=== PATIENT | male | born 1960 | race Caucasian/White ===

== ENCOUNTER 2021-05-22 09:27 | Emergency (ER) | payer OTHER ==
[2021-05-22] MEDS ORDERED: Sodium Chloride 0.9% 1000 ML 1,000 ML IV STA (09:36)
[2021-05-22] MEDS ORDERED: Sodium Chloride 0.9% 1000 ML 1,000 ML ONE (09:39)
--- NOTE | 2021-05-22 09:55 | ERPHSYRPT ---
- History of Present Illness Time Seen by Provider: 05/22/21 09:40 Source: patient Exam Limitations: no limitations Patient Subjective Stated Complaint: Abdominal pain Triage Nursing Assessment: Patient ambulated back to ED and transferred self to bed. Patient A+O X3. Patient's skin pink, warm and dry. Patient complains of lower right sided abdominal pain 10/10. Abdomen soft and round with BS X 4. Patient denies N/V and diarrhea. Patient states his urine stream is slower than normal. Physician History: Patient is a 60-year-old male who presents with a complaint of pain in his testicles which started a few days ago. He was seen by his PCP and started on Cipro 2 days ago. The pain is in the lower and her abdomen in the suprapubic area there is been no fever chills or sweats no nausea vomiting or diarrhea his urine output has been slower difficult to start and he does have a history of prostate infection his PCP did a PSA which was reportedly 20 something. He has a schedule with Looking for a colonoscopy in a few days and he is to see a urologist in 1 month. Previous surgery is limited to the gallbladder. Timing/Duration: week(s) (2) Activites at Onset: none Quality: throbbing Onset Location: suprapubic, right testicle Pain Radiation: suprapubic Severity of Pain-Max: moderate Severity of Pain-Current: moderate Modifying Factors: Improves With: urinating (Difficulty starting his stream and slow to empty his bladder.) Associated Symptoms: abdominal pain Prior abdominal problems: other (Cholecystectomy) Sexual intercourse history: non-contributory Allergies/Adverse Reactions: No Known Drug Allergies Allergy (Unverified 05/22/21 09:32) Hx Influenza Vaccination/Date Given: No Hx Pneumococcal Vaccination/Date Given: No Immunizations Up to Date: Yes Travel Risk - International Travel Have you traveled outside of the country in past 3 weeks: No - Coronavirus Screening Are you exhibiting any of the following symptoms?: No Close contact with a COVID-19 positive Pt in past 14-21 Days: No - Vaccine Status Have you recieved a Covid-19 vaccination: Yes 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 Director: Moderna - Vaccination Dates Date of 2cond Vaccination (if applicable): 10/20/2020 - Past Medical History Pertinent Past Medical History: Yes Neurological History: No Pertinent History Cardiac History: Hypertension Respiratory History: No Pertinent History Endocrine Medical History: No Pertinent History Musculoskeletal History: Arthritis, Degenerative Disk Disease - Social History Smoking Status: Never smoker Exposure to second hand smoke: No Patient Lives Alone: No - Review of Systems Constitutional: No Fever, No Chills Eyes: No Symptoms Ears, Nose, & Throat: No Symptoms Respiratory: No Cough, No Dyspnea Cardiac: No Chest Pain, No Edema, No Syncope Abdominal/Gastrointestinal: Abdominal Pain, No Nausea, No Vomiting, No Diarrhea Genitourinary Symptoms: Hesitancy, Urinary Retention, Testicle Pain, No Dysuria Musculoskeletal: No Back Pain, No Neck Pain Skin: No Rash Neurological: No Dizziness, No Focal Weakness, No Sensory Changes Psychological: No Symptoms Endocrine: No Symptoms All Other Systems: Reviewed and Negative - Nursing Vital Signs Nursing Vital Signs: Initial Vital Signs Temperature 98.0 F 05/22/21 09:34 Pulse Rate 82 05/22/21 09:34 Respiratory Rate 18 05/22/21 09:34 Blood Pressure 142/97 05/22/21 09:34 O2 Sat by Pulse Oximetry 96 05/22/21 09:34 Pain Scale Pain Intensity 10 - Physical Exam General Appearance: no apparent distress, alert Eye Exam: PERRL/EOMI Ears, Nose, Throat Exam: pharynx normal, moist mucous membranes Neck Exam: normal inspection, supple Respiratory Exam: normal breath sounds, lungs clear Cardiovascular Exam: regular rate/rhythm, No edema Gastrointestinal/Abdomen Exam: soft, No tenderness Male Genital Exam: normal genitalia, enlarged prostate (Somewhat boggy to palpation on rectal exam) Back Exam: normal inspection, No CVA tenderness Extremity Exam: normal inspection, normal range of motion, No pedal edema Neurologic Exam: alert, oriented x 3, cooperative, sensation nml, No motor deficits Skin Exam: normal color, warm, dry, No rash SpO2 Interpretation: normal SpO2: 96 O2 Delivery: Room Air - Course Nursing assessment & vital signs reviewed: Yes - CT Exams Abdomen/Pelvis CT Interpretation: Other (Most significant finding on the CT scan was of mesenteric adenitis.) Ordered Tests: Active Orders 24 hr Category Date Time Status IV Insertion STAT Care 05/22/21 09:36 Active ABDOMEN AND PELVIS W CONTRAST [CT] Stat Exams 05/22/21 10:36 Completed AMYLASE Stat Lab 05/22/21 09:40 Completed CBC W DIFF Stat Lab 05/22/21 09:40 Completed CMP Stat Lab 05/22/21 09:40 Completed LIPASE Stat Lab 05/22/21 09:40 Completed Lactic Acid Stat Lab 05/22/21 09:57 Completed PROTIME WITH INR Stat Lab 05/22/21 09:40 Completed Prostate Specific Ag,Screen Stat Lab 05/22/21 10:00 Completed UA W/RFX UR CULTURE Stat Lab 05/22/21 09:44 Completed Medication Summary Discontinued Medications Generic Name Dose Route Start Last Admin Trade Name Gene PRN Reason Stop Dose Admin Sodium Chloride 1,000 mls @ 999 mls/hr 05/22/21 09:36 05/22/21 10:49 Sodium Chloride 0.9% 1000 Ml IV 05/22/21 10:36 Infused .Q1H1M STA Infusion Sodium Chloride Confirm 05/22/21 09:39 Sodium Chloride 0.9% 1000 Ml Administered 05/22/21 09:40 Dose 1,000 mls @ ud .ROUTE .STK-MED ONE Lab/Rad Data: Laboratory Result Diagrams 05/22/21 09:40 05/22/21 09:40 Laboratory Results 05/22/21 05/22/21 05/22/21 Range/Units 10:00 09:57 09:44 WBC (4.0-10.5) K/mm3 RBC (4.1-5.6) M/mm3 Hgb (12.5-18.0) gm/dl Hct (42-50) % MCV (78-100) fl MCH (26-32) pg MCHC (32-36) g/dl RDW (11.5-14.0) % Plt Count (150-450) K/mm3 MPV (7.5-11.0) fl Gran % (36.0-66.0) % Eos # (Auto) (0-0.5) Absolute Lymphs (auto) (1.0-4.6) Absolute Monos (auto) (0.0-1.3) Lymphocytes % (24.0-44.0) % Monocytes % (0.0-12.0) % Eosinophils % (0.00-5.0) % Basophils % (0.0-0.4) % Absolute Granulocytes (1.4-6.9) Basophils # (0-0.4) PT (9.4-12.5) SECONDS INR (0.8-3.0) Sodium (137-145) mmol/L Potassium (3.5-5.1) mmol/L Chloride (98-107) mmol/L Carbon Dioxide (22-30) mmol/L Anion Gap (5-15) MEQ/L BUN (9-20) mg/dL Creatinine (0.66-1.25) mg/dL Estimated GFR ML/MIN Glucose (74-106) mg/dL Lactic Acid 1.6 (0.4-2.0) Calcium (8.4-10.2) mg/dL Total Bilirubin (0.2-1.3) mg/dL AST (17-59) U/L ALT (0-50) U/L Alkaline Phosphatase (38-126) U/L Serum Total Protein (6.3-8.2) g/dL Albumin (3.5-5.0) g/dL Amylase (30-110) U/L Lipase (23-300) U/L PSA Screen 6.860 H (0-4) ng/mL Urine Color YELLOW (YELLOW) Urine Appearance CLEAR (CLEAR) Urine pH 7.0 (5-6) Ur Specific [place] 1.019 (1.005-1.025) Urine Protein 30 (Negative) Urine Ketones NEGATIVE (NEGATIVE) Urine Blood NEGATIVE (0-5) Gutierrez/ul Urine Nitrite NEGATIVE (NEGATIVE) Urine Bilirubin NEGATIVE (NEGATIVE) Urine Urobilinogen 4 (0-1) mg/dL Ur Leukocyte Esterase NEGATIVE (NEGATIVE) Urine WBC (Auto) 0-2 (0-5) /HPF Urine RBC (Auto) NONE SEEN (0-2) /HPF U Epithel Cells (Auto) NONE (FEW) /HPF Urine Bacteria (Auto) NONE SEEN (NEGATIVE) /HPF Urine Mucus (Auto) SLIGHT (NEGATIVE) /HPF Urine Culture Reflexed NO (NO) Urine Glucose NEGATIVE (NEGATIVE) mg/dL 05/22/21 05/22/21 05/22/21 Range/Units 09:40 09:40 09:40 WBC 7.3 (4.0-10.5) K/mm3 RBC 5.09 (4.1-5.6) M/mm3 Hgb 14.4 (12.5-18.0) gm/dl Hct 43.4 (42-50) % MCV 85.3 (78-100) fl MCH 28.3 (26-32) pg MCHC 33.2 (32-36) g/dl RDW 14.8 H (11.5-14.0) % Plt Count 228 (150-450) K/mm3 MPV 9.4 (7.5-11.0) fl Gran % 62.9 (36.0-66.0) % Eos # (Auto) 0.18 (0-0.5) Absolute Lymphs (auto) 1.94 (1.0-4.6) Absolute Monos (auto) 0.56 (0.0-1.3) Lymphocytes % 26.6 (24.0-44.0) % Monocytes % 7.7 (0.0-12.0) % Eosinophils % 2.5 (0.00-5.0) % Basophils % 0.3 (0.0-0.4) % Absolute Granulocytes 4.58 (1.4-6.9) Basophils # 0.02 (0-0.4) PT 12.3 (9.4-12.5) SECONDS INR 1.04 (0.8-3.0) Sodium 139 (137-145) mmol/L Potassium 3.5 (3.5-5.1) mmol/L Chloride 105 (98-107) mmol/L Carbon Dioxide 26 (22-30) mmol/L Anion Gap 10.6 (5-15) MEQ/L BUN 15 (9-20) mg/dL Creatinine 1.23 (0.66-1.25) mg/dL Estimated GFR > 60.0 ML/MIN Glucose 134 H (74-106) mg/dL Lactic Acid (0.4-2.0) Calcium 8.6 (8.4-10.2) mg/dL Total Bilirubin 1.20 (0.2-1.3) mg/dL AST 48 (17-59) U/L ALT 38 (0-50) U/L Alkaline Phosphatase 74 (38-126) U/L Serum Total Protein 7.2 (6.3-8.2) g/dL Albumin 4.1 (3.5-5.0) g/dL Amylase 53 (30-110) U/L Lipase 102 (23-300) U/L PSA Screen (0-4) ng/mL Urine Color (YELLOW) Urine Appearance (CLEAR) Urine pH (5-6) Ur Specific [place] (1.005-1.025) Urine Protein (Negative) Urine Ketones (NEGATIVE) Urine Blood (0-5) Gutierrez/ul Urine Nitrite (NEGATIVE) Urine Bilirubin (NEGATIVE) Urine Urobilinogen (0-1) mg/dL Ur Leukocyte Esterase (NEGATIVE) Urine WBC (Auto) (0-5) /HPF Urine RBC (Auto) (0-2) /HPF U Epithel Cells (Auto) (FEW) /HPF Urine Bacteria (Auto) (NEGATIVE) /HPF Urine Mucus (Auto) (NEGATIVE) /HPF Urine Culture Reflexed (NO) Urine Glucose (NEGATIVE) mg/dL - Progress Progress: unchanged Progress Note: 05/22/21 11:01 The PSA that we obtained was 6.860 which is significantly lower than 1 recently done by the PCP according to her significant other. Since the PSA has shown a dramatic decline on the Cipro I wish to continue that but since there has been no symptomatic improvement I intend to add doxycycline 100 mg twice daily for 10 days. - Departure Departure Disposition: Home Clinical Impression: Prostatitis, Mesenteric adenitis Condition: Stable Critical Care Time: No Referrals: DOCTOR,NO FAMILY [NON-STAFF PHY W/O PRIVILEGES] - Follow up/PCP as directed Instructions: Acute Abdomen (Belly Pain), Adult (DC), Mesenteric Lymphadenitis (DC), Prostatitis (DC) Additional Instructions: Follow-up as planned with your PCP Dr. Gonzalez and your urologist. Prescriptions: Doxycycline Hyclate 100 mg [Vibramycin 100 MG] 100 mg PO BID 10 Days #20 tab
[2021-05-22 10:00] LABS: Absolute Neutrophil Ct (ANC) 4.58 (1.4-6.9); Basophil (Absolute #) 0.02 (0-0.4); Eosinophil % 2.5 % (0.00-5.0); Eosinophil (Absolute #) 0.18 (0-0.5); Hematocrit 43.4 % (42-50); Hemoglobin 14.4 gm/dl (12.5-18.0); Lymphocyte (Absolute #) 1.94 (1.0-4.6); Lymphocytes % 26.6 % (24.0-44.0); Mean Cell Volume 85.3 fl (78-100); Mean Corpuscular Hemoglobin 28.3 pg (26-32); Mean Corpuscular Hgb Concent. 33.2 g/dl (32-36); Mean Platelet Volume 9.4 fl (7.5-11.0); Monocyte (Absolute #) 0.56 (0.0-1.3); Monocytes % 7.7 % (0.0-12.0); Neutrophil % 62.9 % (36.0-66.0); Platelet Count 228 K/mm3 (150-450); Red Blood Count 5.09 M/mm3 (4.1-5.6); Red Cell Distribution Width 14.8 % (11.5-14.0); White Blood Count 7.3 K/mm3 (4.0-10.5)
[2021-05-22 10:01] LABS: Appearance CLEAR (CLEAR); Bilirubin NEGATIVE (NEGATIVE); Blood NEGATIVE Ery/ul (0-5); Glucose NEGATIVE (NEGATIVE); Ketones NEGATIVE (NEGATIVE); Leukocyte Esterase NEGATIVE (NEGATIVE); Mucus SLIGHT /HPF (NEGATIVE); Nitrite NEGATIVE (NEGATIVE); Protein,Urine Dip 30 (Negative); Specific Gravity 1.019 (1.005-1.025); Urobilinogen 4 mg/dL (0-1); WBC 0-2 /HPF (0-5)
[2021-05-22 10:08] LABS: INR 1.04 (0.8-3.0); PROTIME 12.3 SECONDS (9.4-12.5)
[2021-05-22 10:13] LABS: ALBUMIN 4.1 g/dL (3.5-5.0); ALKALINE PHOSPHATASE 74 U/L (38-126); AMYLASE 53 U/L (30-110); ANION GAP 10.6 MEQ/L (5-15); BLOOD UREA NITROGEN 15 mg/dL (9-20); CHLORIDE 105 mmol/L (98-107); Calcium 8.6 mg/dL (8.4-10.2); Carbon Dioxide 26 mmol/L (22-30); Creatinine 1 1.23 mg/dL (0.66-1.25); EST GLOMERULAR FILTRATION RATE > 60.0 ML/MIN; Glucose 134 mg/dL (74-106); LIPASE 102 U/L (23-300); Potassium 3.5 mmol/L (3.5-5.1); SGOT/AST 48 U/L (17-59); SGPT/ALT 38 U/L (0-50); SODIUM 139 mmol/L (137-145); Total Protein 7.2 g/dL (6.3-8.2)
[2021-05-22 10:14] LABS: Bacteria NONE SEEN /HPF (NEGATIVE); RBC NONE SEEN /HPF (0-2)
--- NOTE | 2021-05-22 10:48 | XRAY ---
Indication: Lower abdomen pain. Multiple contiguous axial images obtained through the abdomen and pelvis using 80 cc Isovue 370 contrast. Comparison: None Lung bases demonstrates scattered subsegmental atelectasis/scarring. No infiltrate or effusion. Heart not enlarged. Small hiatal hernia with partial intrathoracic stomach. Noncontrasted stomach and bowel loops appear nonobstructed with normal appendix. Scattered colonic diverticulosis without diverticulitis. Previous cholecystectomy. Mid abdomen demonstrates a few subcentimeter mesenteric nodes with stranding favoring adenitis. No free fluid/air. Mild diffuse fatty liver. Spleen is enlarged measuring 15.4 cm. Remaining liver, pancreas, spleen, adrenal glands, kidneys, ureters, bladder, and aorta are unremarkable. No pathologic retroperitoneal lymphadenopathy. Osseous structures intact. No ventral or inguinal hernias. Impression: 1. Subcentimeter mesenteric nodes with stranding favoring mesenteric adenitis. 2. Incidental small hiatal hernia with partial intrathoracic stomach, colonic diverticulosis, fatty liver, and splenomegaly. 2. Remaining CT abdomen/pelvis with contrast exam is negative.
[2021-05-22 11:55] VITALS: BP 122/81; PULSE 79; O2SAT 100
== END 2021-05-22 11:55 | disposition home or self-care (01) ==
LOC: ED 09:27
DX: N41.9 Inflammatory disease of prostate, unspecified (principal); I88.0 Nonspecific mesenteric lymphadenitis; R10.2 Pelvic and perineal pain; N50.812 Left testicular pain; N50.811 Right testicular pain; I10 Essential (primary) hypertension
CPT/HCPCS: 36000; 36415; 74177; 80053; 81001; 82150; 83605; 83690; 84153; 85025; 85610; 99284; G0103

== ENCOUNTER 2021-07-08 08:31 | Day surgery (SDC) | payer OTHER ==
[2021-07-08] MEDS ORDERED: LIDOCAINE HCL 2% 100 MG/5 ML IJ ONE (08:32)
[2021-07-08] MEDS ORDERED: Lactated Ringers 1,000 ML IV ONE (08:32)
[2021-07-08] MEDS ORDERED: Pepcid 20 MG VIAL IV ONE (10:52)
[2021-07-08] MEDS ORDERED: Reglan 10 MG/2 ML ONE (10:52)
[2021-07-08] MEDS ORDERED: DIPRIVAN 200 MG/20 ML IV ONE (11:58)
--- NOTE | 2021-07-08 12:56 | XRAY ---
Indication: Bilateral L4-S1 MBB Intraoperative fluoroscopy provided for 24 seconds. Single digital spot image submitted for interpretation demonstrates posterior needle tips projecting over the expected left and right L4-S1 nerve roots. Correlate with intraoperative findings/report.
--- NOTE | 2021-07-08 13:58 | XRAY ---
24 seconds fluoroscopy time in surgery for bilateral L4-S1 MBB.
== END 2021-07-08 12:18 | disposition home or self-care (01) ==
LOC: SDC-PAIN 08:31
PROVIDERS: ATTEND Psychiatry & Neurology Pain Medicine
DX: M47.816 Spondylosis without myelopathy or radiculopathy, lumbar region (principal); I10 Essential (primary) hypertension; Z79.899 Other long term (current) drug therapy
CPT/HCPCS: 64493; 64494; 72020; 77002; J2704

== ENCOUNTER 2021-08-08 10:57 | Emergency (ER) | payer OTHER ==
[2021-08-08 11:22] VITALS: BP 141/90; PULSE 69; O2SAT 96
--- NOTE | 2021-08-08 11:26 | ERPHSYRPT ---
- History of Present Illness Time Seen by Provider: 08/08/21 11:22 Source: patient, family Exam Limitations: no limitations Patient Subjective Stated Complaint: pt reports stepping off a curb last evening and injuring his right ankle. states he heard a pop. denies other injuries at this time. Triage Nursing Assessment: pt is aox3, pupils perrl, afebrile, resps easy and non labored, skin pink warm dry. mild swelling noted to right ankle, skin in tact. ROM sensation intact. pt ambulator to trt room with no difficulties. Physician History: pt reports stepping off a curb last evening and injuring his right ankle. states he heard a pop. denies other injuries at this time. Method of Injury: twisted Occurred: yesterday Quality: constant Severity of Pain-Max: moderate Severity of Pain-Current: moderate Lower Extremities Pain: ankle: right Modifying Factors: Improves With: cold therapy Associated Symptoms: popping sensation Allergies/Adverse Reactions: No Known Drug Allergies Allergy (Verified 08/08/21 11:10) Home Medications: Gabapentin [Neurontin ] 300 mg PO TID 08/08/21 [History] Hydrocodone/Acetaminophen [Hydrocodone-Acetamin 5-325 mg] 1 tab PO Q6HPRN PRN MDD 4 08/08/21 [History] Isosorbide Dinitrate 30 mg PO BID 08/08/21 [History] Lisinopril/Hydrochlorothiazide [Lisinopril-Hctz 10-12.5 mg Tab] 1 each PO DAILY 08/08/21 [History] Omeprazole 20 mg PO DAILY 08/08/21 [History] Sertraline HCl 50 mg [Zoloft 50 mg Tablet] 100 mg PO DAILY 08/08/21 [History] hydrOXYzine pamoate [Hydroxyzine Pamoate] 50 mg PO DAILY 08/08/21 [History] Hx Tetanus, Diphtheria Vaccination/Date Given: Yes Hx Influenza Vaccination/Date Given: No Hx Pneumococcal Vaccination/Date Given: No Immunizations Up to Date: Yes Travel Risk - International Travel Have you traveled outside of the country in past 3 weeks: No - Coronavirus Screening Are you exhibiting any of the following symptoms?: No Close contact with a COVID-19 positive Pt in past 14-21 Days: No - Vaccine Status Have you recieved a Covid-19 vaccination: Yes 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 Bench: Moderna - Vaccination Dates Date of 2cond Vaccination (if applicable): 11/08/20 - Review of Systems Constitutional: No Fever, No Chills Eyes: No Symptoms Ears, Nose, & Throat: No Symptoms Respiratory: No Cough, No Dyspnea Cardiac: No Chest Pain, No Edema, No Syncope Abdominal/Gastrointestinal: No Abdominal Pain, No Nausea, No Vomiting, No Diarrhea Genitourinary Symptoms: No Dysuria Musculoskeletal: Joint Swelling (right ankle), No Back Pain, No Neck Pain Skin: No Rash Neurological: No Dizziness, No Focal Weakness, No Sensory Changes Psychological: No Symptoms Endocrine: No Symptoms All Other Systems: Reviewed and Negative - Past Medical History Pertinent Past Medical History: Yes Neurological History: No Pertinent History Cardiac History: Hypertension Respiratory History: No Pertinent History Endocrine Medical History: No Pertinent History Musculoskeletal History: Degenerative Disk Disease, Osteoarthritis - Past Surgical History Past Surgical History: Yes Gastrointestinal: Cholecystectomy - Social History Smoking Status: Never smoker Exposure to second hand smoke: No Drug Use: none Patient Lives Alone: No - Nursing Vital Signs Nursing Vital Signs: Initial Vital Signs Temperature 97 F 08/08/21 11:01 Pulse Rate 69 08/08/21 11:01 Respiratory Rate 18 08/08/21 11:01 Blood Pressure 141/90 08/08/21 11:01 O2 Sat by Pulse Oximetry 96 08/08/21 11:01 Pain Scale Pain Intensity 8 - Physical Exam General Appearance: alert Eyes, Ears, Nose, Throat Exam: moist mucous membranes Neck Exam: non-tender, supple Cardiovascular/Respiratory Exam: chest non-tender, normal breath sounds, regular rate/rhythm, no respiratory distress Gastrointestinal/Abdominal Exam: non-tender, guarding Back Exam: normal inspection, No vertebral tenderness Hips Exam: bilateral: non-tender Legs Exam: bilateral leg: non-tender Knees Exam: bilateral knee: non-tender Ankle Exam: right ankle: limited range of motion, soft tissue tenderness Foot Exam: bilateral foot: non-tender Neuro/Tendon Exam: normal sensation, normal motor functions Mental Status Exam: alert, oriented x 3, cooperative Skin Exam: normal color, warm, dry SpO2: 96 - Course Nursing assessment & vital signs reviewed: Yes - Radiology Exams Ankle X-ray Interpretation: Reviewed by me, Discussed w/ radiologist, Negative Ordered Tests: Active Orders 24 hr Category Date Time Status ANKLE (3 VIEWS) Stat Exams 08/08/21 11:18 Taken - Progress Progress: improved, pain not gone completely Counseled pt/family regarding: diagnosis, need for follow-up, rad results - Departure Departure Disposition: Home Clinical Impression: Right ankle sprain Qualifiers: Encounter type: initial encounter Involved ligament of ankle: tibiofibular ligament Qualified Code(s): S93.431A - Sprain of tibiofibular ligament of right ankle, initial encounter Condition: Stable Critical Care Time: No Referrals: YARITZA BERGERON CHORAL TEACHER [Primary Care Provider] - [facility]th[facility] M-F [id number] Instructions: Ankle Sprain (DC) Additional Instructions: SPRAINS/STRAINS/CONTUSIONS 1. Rest the affected area as much as possible for the next few days. 2. Apply ice to the affected area for 20-30 minutes at a time, several times a day. 3. If you receive an elastic wrap, wear it only while awake for comfort and support. Re-wrap the elastic wrap if it feels too tight or too loose. 4. If swelling is present, elevate the affected part above the level of the heart for at least 2 to 3 days. 5. Use splints, slings, or crutches as instructed. 6. Watch for severe swelling, coldness, numbness, and discoloration of the fingers and toes. See your family physician or return to the emergency department if any of these are noted. Discharge/Care Plan JAMES HAYES was seen on 08/08/21 in the Emergency Room. The patient was counseled regarding Diagnosis,Lab results, Imaging studies, need for follow up and when to return to the Emergency Room. Prescriptions given: Discharge Note I have spoken with the patient and/or caregivers. I have explained the patient's condition, diagnosis and treatment plan based on the information available to me at this time. I have answered the patient's and/or caregiver's questions and addressed any concerns. The patient and/or caregivers have as good understanding of the patient's diagnosis, condition and treatment plan as can be expected at this point. The vital signs have been stable. The patient's condition is stable and appropriate for discharge from the emergency department. The patient will pursue further outpatient evaluation with the primary care physician or other designated or consulting physician as outlined in the discharge instructions. The patient and/or caregivers are agreeable to this plan of care and follow-up instructions have been explained in detail. The patient and/or caregivers have received these instruction. The patient/and or caregivers are aware that any significant change in condition or worsening of symptoms should prompt an immediate return to this or the closest emergency department or call 911. JAMES HAYES was seen on 08/08/21 n the Emergency Room. At that time you were treated for an emergent condition, during your visit Laboratory, Radiology and/or other procedures may have been ordered. It is very important that you follow-up with your Primary Care Physician YARITZA BERGERON NP within the next 24-48 hours to review your Emergency Room visit and the final results of testing that was ordered. Some test results such as Urine Cultures, Blood Cultures, and other cultures if ordered will not be finalized for 24-48 hours. If you do not have a Primary Care Provider please call the medical records department at [phone] ext [phone] to obtain a copy of your results or you may sign into our patient portal to obtain these results by visiting us @ [email or web address] and completing the following steps: 1. Click on the Patient Portal link 2. Click the Patient Self Enrollment Link to complete the enrollment form and entering your 3. Once the enrollment form is completed you will receive an email with a temporary ID and password at the email address you provided. 4. Next choose a user name and password. Your user name must be at least 4 characters long and your password must be at least 4 characters long. 5. Choose a security question from the list and provide your answer to the question. If you already have signed into the Health Portal you may access your Health Care Information 11/10 by the following steps: 1. Login to our website @ [email or web address] 2. Enter your original user name and password. FAQS The [facility] Health Portal is an online tool that contains your Lab Results, Radiology Reports, Visit History, Discharge Instructions and Health Summary Lab and Radiology Results will not be available for 72 hours on the portal. The Portal is a secure site, passwords are encryted and URLs are re-written so they cannot be copied and pasted. You and authorized family members are the only ones who can access your Portal. Also there is a timeout feature that protects your information if you leave the Portal page open. If you have technical difficulty please use the Contact Us link on the page this will allow you to submit any questions you have regarding the Portal or you may contact the Medical Record Department at [phone] ext [phone].
--- NOTE | 2021-08-08 19:27 | XRAY ---
Indication: Pain following fall. Comparison: None 3 view right ankle demonstrates lateral soft tissue swelling and tiny calcaneal bone island. No other bony, articular, or soft tissue abnormalities. Comment: Preliminary interpretation made by [facility]. No critical discrepancy.
== END 2021-08-08 12:15 | disposition home or self-care (01) ==
LOC: ED 10:57
DX: S93.431A Sprain of tibiofibular ligament of right ankle, initial encounter (principal); X50.0XXA Overexertion from strenuous movement or load, initial encounter; Y93.01 Activity, walking, marching and hiking; M25.571 Pain in right ankle and joints of right foot; I10 Essential (primary) hypertension; Z79.891 Long term (current) use of opiate analgesic; Z79.899 Other long term (current) drug therapy
CPT/HCPCS: 73610; 99283

== ENCOUNTER 2021-09-02 07:31 | Day surgery (SDC) | payer OTHER ==
[2021-09-02] MEDS ORDERED: Sodium Chloride 0.9(Preservative Free) 10 ML IJ ONE (07:32)
[2021-09-02] MEDS ORDERED: XYLOCAINE-MPF 1% 5ML SDV IJ ONE (07:32)
[2021-09-02] MEDS ORDERED: Depo-Medrol 40 MG/ML IM ONE (07:32)
[2021-09-02] MEDS ORDERED: Lactated Ringers 1,000 ML IV ONE (07:32)
[2021-09-02] MEDS ORDERED: Reglan 10 MG/2 ML ONE (08:55)
[2021-09-02] MEDS ORDERED: Pepcid 20 MG VIAL IV ONE (08:55)
--- NOTE | 2021-09-02 11:43 | XRAY ---
Indication: Lumbar MATA. Intraoperative fluoroscopy provided for 25 seconds. 2 digital spot images submitted for interpretation demonstrate midline posterior needle tip projecting posterior to the L4-L5 interspace. Small amount of contrast injected for needle tip placement. Correlate with intraoperative findings/report.
--- NOTE | 2021-09-02 12:29 | XRAY ---
25 seconds of fluoroscopy was used in surgery for a lumbar MATA.
== END 2021-09-02 10:13 | disposition home or self-care (01) ==
LOC: SDC-PAIN 07:31
PROVIDERS: ATTEND Psychiatry & Neurology Pain Medicine
DX: M54.16 Radiculopathy, lumbar region (principal); Z79.899 Other long term (current) drug therapy
CPT/HCPCS: 62323; 72100; 77003; J1030; Q9966

== ENCOUNTER 2021-09-16 10:52 | Day surgery (SDC) | payer OTHER ==
[2021-09-16] MEDS ORDERED: DIPRIVAN 200 MG/20 ML IV ONE (10:53)
[2021-09-16] MEDS ORDERED: Lactated Ringers 1,000 ML IV ONE (10:53)
[2021-09-16] MEDS ORDERED: Marcaine Mpf 0.5% Vial 30 Ml IJ ONE (10:53)
[2021-09-16] MEDS ORDERED: Depo-Medrol 40 MG/ML IM ONE (10:53)
[2021-09-16] MEDS ORDERED: Reglan 10 MG/2 ML ONE (11:49)
[2021-09-16] MEDS ORDERED: Pepcid 20 MG VIAL IV ONE (11:49)
--- NOTE | 2021-09-17 18:30 | XRAY ---
20 seconds of fluoroscopy was used in surgery for bilateral SI joints injections.
--- NOTE | 2021-09-18 15:34 | XRAY ---
Indication: Bilateral SI joint injection. Intraoperative fluoroscopy provided for 20 seconds. 4 digital spot images submitted for interpretation demonstrates posterior needle tips projecting over the inferior sacroiliac joints is evident. Correlate with intraoperative findings/report.
== END 2021-09-16 13:01 | disposition home or self-care (01) ==
LOC: SDC-PAIN 10:52
PROVIDERS: ATTEND Psychiatry & Neurology Pain Medicine
DX: M46.1 Sacroiliitis, not elsewhere classified (principal); Z79.899 Other long term (current) drug therapy
CPT/HCPCS: 27096; 72202; 77002; G0260; J1030; J2704

== ENCOUNTER 2021-10-28 13:17 | Day surgery (SDC) | payer OTHER ==
[2021-10-28] MEDS ORDERED: Marcaine Mpf 0.5% Vial 30 Ml IJ ONE (13:18)
[2021-10-28] MEDS ORDERED: DIPRIVAN 200 MG/20 ML IV ONE (15:21)
[2021-10-28] MEDS ORDERED: Lactated Ringers 1,000 ML IV ONE (15:44)
--- NOTE | 2021-10-28 16:25 | XRAY ---
Indication: Bilateral L4-S1 MBB. Intraoperative fluoroscopy provided for 28 seconds. Single digital spot image submitted for interpretation demonstrates posterior needle tips projecting over the expected left and right L4-S1 nerve roots. Correlate with intraoperative findings/report.
--- NOTE | 2021-10-28 16:44 | XRAY ---
28 seconds of fluoroscopy was used in surgery for a bilateral L4-S1 MBB.
== END 2021-10-28 15:50 | disposition home or self-care (01) ==
LOC: SDC-PAIN 13:17
PROVIDERS: ATTEND Psychiatry & Neurology Pain Medicine
DX: M47.816 Spondylosis without myelopathy or radiculopathy, lumbar region (principal); Z79.899 Other long term (current) drug therapy
CPT/HCPCS: 64493; 64494; 72020; 77002; J2704

== ENCOUNTER 2021-11-04 14:45 | Emergency (ER) | payer OTHER ==
[2021-11-04] MEDS ORDERED: Sodium Chloride 0.9% 1000 ML 1,000 ML ONE (15:25)
[2021-11-04] MEDS: Sodium Chloride 0.9% 1000 ML 1,000 ML IV STA (15:26)
[2021-11-04 15:27] LABS: Absolute Neutrophil Ct (ANC) 4.79 x10^3/uL (1.4-6.9); Basophil (Absolute #) 0.04 x10^3/uL (0-0.4); Eosinophil % 2.7 % (0.00-5.0); Eosinophil (Absolute #) 0.18 x10^3/uL (0-0.5); Hematocrit 43.3 % (42-50); Hemoglobin 14.3 g/dL (12.5-18.0); Lymphocyte (Absolute #) 1.27 x10^3/uL (1.0-4.6); Lymphocytes % 18.8 % (24.0-44.0); Mean Cell Volume 83.4 fL (78-100); Mean Corpuscular Hemoglobin 27.6 pg (26-32); Mean Platelet Volume 9.6 fL (7.5-11.0); Monocyte (Absolute #) 0.43 x10^3/uL (0.0-1.3); Monocytes % 6.4 % (0.0-12.0); Neutrophil % 71.1 % (36.0-66.0); Platelet Count 204 x10^3/uL (150-450); Red Blood Count 5.19 x10^6/uL (4.1-5.6); Red Cell Distribution Width 15.5 % (11.5-14.0); White Blood Count 6.7 x10^3/uL (4.0-10.5)
[2021-11-04 15:41] LABS: D-DIMER QUANTITATIVE < 0.19 mg/L (0.0-0.50); INR 0.99 (0.8-3.0); PROTIME 10.5 SECONDS (9.4-12.5)
[2021-11-04 15:54] LABS: ALBUMIN 4.3 g/dL (3.5-5.0); ALKALINE PHOSPHATASE 63 U/L (38-126); AMYLASE 67 U/L (30-110); ANION GAP 12.7 MEQ/L (5-15); BLOOD UREA NITROGEN 14 mg/dL (9-20); CHLORIDE 106 mmol/L (98-107); Calcium 9.3 mg/dL (8.4-10.2); Carbon Dioxide 24 mmol/L (22-30); Creatinine 1 1.28 mg/dL (0.66-1.25); EST GLOMERULAR FILTRATION RATE > 60.0 ML/MIN; Glucose 139 mg/dL (74-106); LIPASE 72 U/L (23-300); NT PRO BNP 23.1 pg/mL (0-900); Potassium 3.8 mmol/L (3.5-5.1); SGOT/AST 31 U/L (17-59); SGPT/ALT 22 U/L (0-50); SODIUM 138 mmol/L (137-145); Total Protein 7.5 g/dL (6.3-8.2)
[2021-11-04] MEDS ORDERED: Zofran 4 MG/2 ML VIAL ONE (16:30)
[2021-11-04] MEDS: Zofran 4 MG/2 ML VIAL IV ONE (16:31)
[2021-11-04 16:32] LABS: Erythrocyte Sedimentation Rate 11 mm/hr (0-15)
--- NOTE | 2021-11-04 16:32 | XRAY ---
Indication: Chest discomfort. Bilateral arm tingling. Comparison: None Portable chest demonstrates lingula subsegmental atelectasis/scarring. Remaining heart and lungs unremarkable. Bony thorax intact.
--- NOTE | 2021-11-04 16:32 | XRAY ---
Indication: Bilateral arm pain and paresthesia. Multiple contiguous axial images obtained through the cervical spine. Sagittal and coronal reformatted images obtained. Comparison: None Axial images negative for acute fracture, suspicious bony lesions, or spinal canal stenosis. Facets are symmetric. Sagittal and coronal reformatted images demonstrates lordotic straightening. Vertebral body heights/disc spaces maintained. No acute compression fracture, subluxation, or jumped facet. Normal appearing craniocervical junction. Visualized noncontrasted soft tissues including lung apices are unremarkable. Patient is edentulous. Impression: Negative CT cervical spine.
[2021-11-04 17:34] LABS: WBC 0-2 /HPF (0-5)
[2021-11-04] MEDS ORDERED: Hydromorphone 1 mg/ml Injection ONE (17:44)
[2021-11-04] MEDS: Hydromorphone 1 mg/ml Injection IV ONE (17:45)
[2021-11-04 17:47] LABS: Appearance CLOUDY (CLEAR); Bilirubin NEGATIVE (NEGATIVE); Glucose NEGATIVE (NEGATIVE); Ketones NEGATIVE (NEGATIVE); Nitrite NEGATIVE (NEGATIVE); Protein,Urine Dip NEGATIVE (Negative); RBC NEGATIVE Ery/ul (0-5); Urobilinogen 0.2 mg/dL (0-1)
[2021-11-04 17:48] LABS: Dipstick done @ ? MAIN LAB
[2021-11-04 17:49] LABS: Urine Cultured Indicated? NO
[2021-11-04 18:15] VITALS: O2SAT 96
--- NOTE | 2021-11-04 18:37 | ERPHSYRPT ---
- History of Present Illness Time Seen by Provider: 11/04/21 14:50 Historian: patient Exam Limitations: no limitations Patient Subjective Stated Complaint: Pt states "I have tingling in both arms and I could not sleep last night very well." Triage Nursing Assessment: PT presented alert and oriented X 3, skin pwd Pt ambulates with an upright steady gait, able to speak in clear full setnences pt in no apaprent respiratory distress. Physician History: Patient is a 61-year-old white male presents with a several complaints 1 is bilateral tingling in his hands and pain across his chest which she rates 11 of 10. He seems quite dramatic and somewhat anxious. These chest pain started last p.m. 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 He is also seen at the pain center for lower back pain and degenerative disc disease. Timing/Duration: yesterday Activities at Onset: sleep Quality: tightness Location: substernal Chest Pain Radiation: no radiation Severity of Pain-Max: moderate Severity of Pain-Current: mild Modifying Factors: Improves With: nitroglycerin (Nitroglycerin was of no help at all) Associated Symptoms: nausea Prior Chest Pain/Cardiac Workup: stress test Nitro Today/Relief: no nitro taken today Aspirin Treatment Today: no aspirin today Allergies/Adverse Reactions: No Known Drug Allergies Allergy (Verified 08/08/21 11:10) Home Medications: Gabapentin [Neurontin ] 300 mg PO TID 08/08/21 [History] Hydrocodone/Acetaminophen [Hydrocodone-Acetamin 5-325 mg] 1 tab PO Q6HPRN PRN MDD 4 08/08/21 [History] Isosorbide Dinitrate 30 mg PO BID 08/08/21 [History] Lisinopril/Hydrochlorothiazide [Lisinopril-Hctz 10-12.5 mg Tab] 1 each PO DAILY 08/08/21 [History] Omeprazole 20 mg PO DAILY 08/08/21 [History] Sertraline HCl 50 mg [Zoloft 50 mg Tablet] 100 mg PO DAILY 08/08/21 [History] hydrOXYzine pamoate [Hydroxyzine Pamoate] 50 mg PO DAILY 08/08/21 [History] Hx Tetanus, Diphtheria Vaccination/Date Given: Yes Hx Influenza Vaccination/Date Given: No Hx Pneumococcal Vaccination/Date Given: No Immunizations Up to Date: Yes Travel Risk - International Travel Have you traveled outside of the country in past 3 weeks: No - Coronavirus Screening Are you exhibiting any of the following symptoms?: No Close contact with a COVID-19 positive Pt in past 14-21 Days: No - Vaccine Status Have you recieved a Covid-19 vaccination: Yes 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 - Vaccination Dates Date of 2cond Vaccination (if applicable): 11/08/20 - Review of Systems Constitutional: No Fever, No Chills Eyes: No Symptoms Ears, Nose, & Throat: No Symptoms Respiratory: No Cough, No Dyspnea Cardiac: Chest Pain, No Edema, No Syncope Abdominal/Gastrointestinal: No Abdominal Pain, No Nausea, No Vomiting, No Diarrhea Genitourinary Symptoms: No Dysuria Musculoskeletal: No Back Pain, No Neck Pain Skin: No Rash Neurological: Parasthesia, No Dizziness, No Focal Weakness, No Sensory Changes Psychological: No Symptoms Endocrine: No Symptoms Hematologic/Lymphatic: No Symptoms Immunological/Allergic: No Symptoms All Other Systems: Reviewed and Negative - Past Medical History Pertinent Past Medical History: Yes Neurological History: No Pertinent History Cardiac History: Hypertension Respiratory History: No Pertinent History Endocrine Medical History: No Pertinent History Musculoskeletal History: Degenerative Disk Disease, Osteoarthritis - Past Surgical History Past Surgical History: Yes Gastrointestinal: Cholecystectomy - Social History Smoking Status: Never smoker Exposure to second hand smoke: No Drug Use: none Patient Lives Alone: No - Nursing Vital Signs Nursing Vital Signs: Initial Vital Signs Temperature 96.8 F 11/04/21 14:49 Pulse Rate 61 11/04/21 14:49 Respiratory Rate 20 11/04/21 14:49 Blood Pressure 123/88 11/04/21 14:49 O2 Sat by Pulse Oximetry 98 11/04/21 14:49 Pain Scale Pain Intensity 0 - Physical Exam General Appearance: mild distress, alert Eye Exam: PERRL/EOMI, eyes nml inspection Ears, Nose, Throat Exam: normal ENT inspection, moist mucous membranes Neck Exam: normal inspection, non-tender, supple, full range of motion Respiratory Exam: normal breath sounds, lungs clear, No respiratory distress Cardiovascular Exam: regular rate/rhythm, normal heart sounds Gastrointestinal/Abdomen Exam: soft, No tenderness, No mass Back Exam: normal inspection, No CVA tenderness, No vertebral tenderness Extremity Exam: normal inspection, normal range of motion Neurologic Exam: alert, oriented x 3, cooperative, normal mood/affect, sensation nml, No motor deficits Skin Exam: normal color, warm, dry SpO2: 96 - Course Nursing assessment & vital signs reviewed: Yes EKG Interpreted by Me: RATE ([id number]), Sinus Rhythm, NORMAL AXIS, Left [place] Deviation, NORMAL INTERVALS, Non-specific ST Changes Ordered Tests: Active Orders 24 hr Category Date Time Status EKG-ER Only STAT Care 11/04/21 15:07 Active IV Insertion STAT Care 11/04/21 15:07 Active CERVICAL SPINE WO CONTRAST [CT] Routine Exams 11/04/21 15:31 Completed CHEST 1 VIEW (PORTABLE) Routine Exams 11/04/21 15:32 Completed AMYLASE Stat Lab 11/04/21 15:25 Completed CBC W DIFF Stat Lab 11/04/21 15:25 Completed CMP Stat Lab 11/04/21 15:25 Completed D-DIMER QUANTITATIVE Stat Lab 11/04/21 15:25 Completed Erythrocyte Sedimentation Rate Stat Lab 11/04/21 15:25 Completed LIPASE Stat Lab 11/04/21 15:25 Completed Lactic Acid Stat Lab 11/04/21 15:25 Completed NT PRO BNP Stat Lab 11/04/21 15:25 Completed PROTIME WITH INR Stat Lab 11/04/21 15:25 Completed TROPONIN Q4H Lab 11/04/21 15:25 Completed TROPONIN Q4H Lab 11/04/21 17:55 Completed TROPONIN Q4H Lab 11/04/21 23:15 Ordered UA W/RFX CULTURE Stat Lab 11/04/21 17:24 Completed Medication Summary Discontinued Medications Generic Name Dose Route Start Last Admin Trade Name Freq PRN Reason Stop Dose Admin Hydromorphone HCl 1 mg 11/04/21 17:41 11/04/21 17:45 Hydromorphone 1 Mg/1ml Inj 1 Mg/Ml Syringe IV 11/04/21 17:42 1 mg STAT ONE Administration Hydromorphone HCl Confirm 11/04/21 17:44 Hydromorphone 1 Mg/1ml Inj 1 Mg/Ml Syringe Administered 11/04/21 17:45 Dose 1 mg .ROUTE .STK-MED ONE Sodium Chloride 1,000 mls @ 999 mls/hr 11/04/21 15:07 11/04/21 16:37 Sodium Chloride 0.9% 1000 Ml IV 11/04/21 16:07 Infused .Q1H1M STA Infusion Sodium Chloride Confirm 11/04/21 15:25 Sodium Chloride 0.9% 1000 Ml Administered 11/04/21 15:26 Dose 1,000 mls @ ud .ROUTE .STK-MED ONE Ondansetron HCl 4 mg 11/04/21 16:26 11/04/21 16:31 Ondansetron Hcl 4 Mg/2 Ml Vial IV 11/04/21 16:27 4 mg STAT ONE Administration Ondansetron HCl Confirm 11/04/21 16:30 Ondansetron Hcl 4 Mg/2 Ml Vial Administered 11/04/21 16:31 Dose 4 mg .ROUTE .STK-MED ONE Lab/Rad Data: Laboratory Result Diagrams 11/04/21 15:25 11/04/21 15:25 Laboratory Results 11/04/21 11/04/21 11/04/21 Range/Units 17:55 17:24 15:25 WBC (4.0-10.5) x10^3/uL RBC (4.1-5.6) x10^6/uL Hgb (12.5-18.0) g/dL Hct (42-50) % MCV (78-100) fL MCH (26-32) pg MCHC (32-36) g/dL RDW (11.5-14.0) % Plt Count (150-450) x10^3/uL MPV (7.5-11.0) fL Gran % (36.0-66.0) % Immature Gran % (Auto) (0.00-0.4) % Nucleat RBC Rel Count (0.00-0.1) % Eos # (Auto) (0-0.5) x10^3/uL Immature Gran # (Auto) (0.00-0.03) x10^3u/L Absolute Lymphs (auto) (1.0-4.6) x10^3/uL Absolute Monos (auto) (0.0-1.3) x10^3/uL Absolute Nucleated RBC (0.00-0.01) x10^3u/L Lymphocytes % (24.0-44.0) % Monocytes % (0.0-12.0) % Eosinophils % (0.00-5.0) % Basophils % (0.0-0.4) % Absolute Granulocytes (1.4-6.9) x10^3/uL Basophils # (0-0.4) x10^3/uL ESR (0-15) mm/hr PT (9.4-12.5) SECONDS INR (0.8-3.0) D-Dimer (0.0-0.50) mg/L Sodium (137-145) mmol/L Potassium (3.5-5.1) mmol/L Chloride (98-107) mmol/L Carbon Dioxide (22-30) mmol/L Anion Gap (5-15) MEQ/L BUN (9-20) mg/dL Creatinine (0.66-1.25) mg/dL Estimated GFR ML/MIN Glucose (74-106) mg/dL Lactic Acid (0.4-2.0) Calcium (8.4-10.2) mg/dL Total Bilirubin (0.2-1.3) mg/dL AST (17-59) U/L ALT (0-50) U/L Alkaline Phosphatase (38-126) U/L Troponin I < 0.012 < 0.012 (0.000-0.034) ng/mL NT-Pro-B Natriuret Pep (0-900) pg/mL Serum Total Protein (6.3-8.2) g/dL Albumin (3.5-5.0) g/dL Amylase (30-110) U/L Lipase (23-300) U/L Urinalys Dipstick Clnc MAIN LAB Urine Color YELLOW (YELLOW) Urine Appearance CLOUDY (CLEAR) Urine pH 7.0 (5-6) Ur Specific [place] 1.020 (1.005-1.025) POC Urine Protein Conf NEGATIVE (Negative) Urine Ketones NEGATIVE (NEGATIVE) Urine Nitrite NEGATIVE (NEGATIVE) Urine Bilirubin NEGATIVE (NEGATIVE) Urine Urobilinogen 0.2 (0-1) mg/dL Urine Leukocytes NEGATIVE (NEGATIVE) Urine WBC (Auto) 0-2 (0-5) /HPF Urine RBC (Auto) NONE (0-2) /HPF U Epithel Cells (Auto) NONE (FEW) /HPF Urine Bacteria (Auto) NONE (NEGATIVE) /HPF Urine RBC NEGATIVE (0-5) Gutierrez/ul Ur Culture Indicated? NO Urine Glucose NEGATIVE (NEGATIVE) mg/dL 11/04/21 11/04/21 11/04/21 Range/Units 15:25 15:25 15:25 WBC (4.0-10.5) x10^3/uL RBC (4.1-5.6) x10^6/uL Hgb (12.5-18.0) g/dL Hct (42-50) % MCV (78-100) fL MCH (26-32) pg MCHC (32-36) g/dL RDW (11.5-14.0) % Plt Count (150-450) x10^3/uL MPV (7.5-11.0) fL Gran % (36.0-66.0) % Immature Gran % (Auto) (0.00-0.4) % Nucleat RBC Rel Count (0.00-0.1) % Eos # (Auto) (0-0.5) x10^3/uL Immature Gran # (Auto) (0.00-0.03) x10^3u/L Absolute Lymphs (auto) (1.0-4.6) x10^3/uL Absolute Monos (auto) (0.0-1.3) x10^3/uL Absolute Nucleated RBC (0.00-0.01) x10^3u/L Lymphocytes % (24.0-44.0) % Monocytes % (0.0-12.0) % Eosinophils % (0.00-5.0) % Basophils % (0.0-0.4) % Absolute Granulocytes (1.4-6.9) x10^3/uL Basophils # (0-0.4) x10^3/uL ESR (0-15) mm/hr PT 10.5 (9.4-12.5) SECONDS INR 0.99 (0.8-3.0) D-Dimer < 0.19 (0.0-0.50) mg/L Sodium 138 (137-145) mmol/L Potassium 3.8 (3.5-5.1) mmol/L Chloride 106 (98-107) mmol/L Carbon Dioxide 24 (22-30) mmol/L Anion Gap 12.7 (5-15) MEQ/L BUN 14 (9-20) mg/dL Creatinine 1.28 H (0.66-1.25) mg/dL Estimated GFR > 60.0 ML/MIN Glucose 139 H (74-106) mg/dL Lactic Acid 1.3 (0.4-2.0) Calcium 9.3 (8.4-10.2) mg/dL Total Bilirubin 1.30 (0.2-1.3) mg/dL AST 31 (17-59) U/L ALT 22 (0-50) U/L Alkaline Phosphatase 63 (38-126) U/L Troponin I (0.000-0.034) ng/mL NT-Pro-B Natriuret Pep 23.1 (0-900) pg/mL Serum Total Protein 7.5 (6.3-8.2) g/dL Albumin 4.3 (3.5-5.0) g/dL Amylase 67 (30-110) U/L Lipase 72 (23-300) U/L Urinalys Dipstick Clnc Urine Color (YELLOW) Urine Appearance (CLEAR) Urine pH (5-6) Ur Specific [place] (1.005-1.025) POC Urine Protein Conf (Negative) Urine Ketones (NEGATIVE) Urine Nitrite (NEGATIVE) Urine Bilirubin (NEGATIVE) Urine Urobilinogen (0-1) mg/dL Urine Leukocytes (NEGATIVE) Urine WBC (Auto) (0-5) /HPF Urine RBC (Auto) (0-2) /HPF U Epithel Cells (Auto) (FEW) /HPF Urine Bacteria (Auto) (NEGATIVE) /HPF Urine RBC (0-5) Gutierrez/ul Ur Culture Indicated? Urine Glucose (NEGATIVE) mg/dL 11/04/ Range/Units 15:25 WBC 6.7 (4.0-10.5) x10^3/uL RBC 5.19 (4.1-5.6) x10^6/uL Hgb 14.3 (12.5-18.0) g/dL Hct 43.3 (42-50) % MCV 83.4 (78-100) fL MCH 27.6 (26-32) pg MCHC 33.0 (32-36) g/dL RDW 15.5 H (11.5-14.0) % Plt Count 204 (150-450) x10^3/uL MPV 9.6 (7.5-11.0) fL Gran % 71.1 H (36.0-66.0) % Immature Gran % (Auto) 0.4 (0.00-0.4) % Nucleat RBC Rel Count 0.0 (0.00-0.1) % Eos # (Auto) 0.18 (0-0.5) x10^3/uL Immature Gran # (Auto) 0.03 (0.00-0.03) x10^3u/L Absolute Lymphs (auto) 1.27 (1.0-4.6) x10^3/uL Absolute Monos (auto) 0.43 (0.0-1.3) x10^3/uL Absolute Nucleated RBC 0.00 (0.00-0.01) x10^3u/L Lymphocytes % 18.8 L (24.0-44.0) % Monocytes % 6.4 (0.0-12.0) % Eosinophils % 2.7 (0.00-5.0) % Basophils % 0.6 (0.0-0.4) % Absolute Granulocytes 4.79 (1.4-6.9) x10^3/uL Basophils # 0.04 (0-0.4) x10^3/uL ESR 11 (0-15) mm/hr PT (9.4-12.5) SECONDS INR (0.8-3.0) D-Dimer (0.0-0.50) mg/L Sodium (137-145) mmol/L Potassium (3.5-5.1) mmol/L Chloride (98-107) mmol/L Carbon Dioxide (22-30) mmol/L Anion Gap (5-15) MEQ/L BUN (9-20) mg/dL Creatinine (0.66-1.25) mg/dL Estimated GFR ML/MIN Glucose (74-106) mg/dL Lactic Acid (0.4-2.0) Calcium (8.4-10.2) mg/dL Total Bilirubin (0.2-1.3) mg/dL AST (17-59) U/L ALT (0-50) U/L Alkaline Phosphatase (38-126) U/L Troponin I (0.000-0.034) ng/mL NT-Pro-B Natriuret Pep (0-900) pg/mL Serum Total Protein (6.3-8.2) g/dL Albumin (3.5-5.0) g/dL Amylase (30-110) U/L Lipase (23-300) U/L Urinalys Dipstick Clnc Urine Color (YELLOW) Urine Appearance (CLEAR) Urine pH (5-6) Ur Specific [place] (1.005-1.025) POC Urine Protein Conf (Negative) Urine Ketones (NEGATIVE) Urine Nitrite (NEGATIVE) Urine Bilirubin (NEGATIVE) Urine Urobilinogen (0-1) mg/dL Urine Leukocytes (NEGATIVE) Urine WBC (Auto) (0-5) /HPF Urine RBC (Auto) (0-2) /HPF U Epithel Cells (Auto) (FEW) /HPF Urine Bacteria (Auto) (NEGATIVE) /HPF Urine RBC (0-5) Gutierrez/ul Ur Culture Indicated? Urine Glucose (NEGATIVE) mg/dL - Progress Progress: improved Air Movement: good Blood Culture(s) Obtained: No Antibiotics given: No - Departure Departure Disposition: Home Clinical Impression: Atypical chest pain Condition: Stable Critical Care Time: No Referrals: YARITZA BERGERON NP [Primary Care Provider] - Follow up/PCP as directed Instructions: Chest Pain That Is Not Caused by the Heart (DC)
[2021-11-04 18:45] VITALS: BP 114/75; PULSE 71
== END 2021-11-04 18:45 | disposition home or self-care (01) ==
LOC: ED 14:45
DX: R07.89 Other chest pain (principal); R20.2 Paresthesia of skin; R11.0 Nausea; I10 Essential (primary) hypertension; Z79.899 Other long term (current) drug therapy; Z79.891 Long term (current) use of opiate analgesic
CPT/HCPCS: 36000; 36415; 71045; 72125; 80053; 81015; 82150; 83605; 83690; 83880; 84484; 85025; 85379; 85610; 85652; 93005; 96360; 96374; 96375; 99284; J1170; J2405

== ENCOUNTER 2022-01-09 01:00 | Emergency (ER) | payer OTHER ==
[2022-01-09] MEDS ORDERED: Kenalog-40 IM ONE (01:16)
[2022-01-09 01:25] VITALS: O2SAT 95
--- NOTE | 2022-01-09 01:25 | ERPHSYRPT ---
- History of Present Illness Time Seen by Provider: 01/09/22 01:04 Source: patient Exam Limitations: no limitations Physician History: 61 years old male with history of hypertension, hyperlipidemia, chronic pain on pain medications presented in the ER with chief complaint of bilateral hand/wrist pain and tingling sensation for the last 4 to 6 weeks off and on. Patient reported it is more at nighttime and it feels tingly and numb with pain shooting to forearm and arms, has to shake her hand multiple times and it wakes him up from sleep. It is gradually getting worse and happens during the daytime as well. Denies any fall or trauma. No chest pain palpitations or shortness of breath. No other focal numbness tingling or weakness. Does not have any weakness in the hands/arms. Timing/Duration: week(s) (6), intermittent, worse Severity: moderate Associated Symptoms: denies symptoms Allergies/Adverse Reactions: No Known Drug Allergies Allergy (Verified 01/09/22 01:12) Home Medications: Gabapentin [Neurontin ] 300 mg PO TID 08/08/21 [History] Hydrocodone/Acetaminophen [Hydrocodone-Acetamin 5-325 mg] 1 tab PO Q6HPRN PRN MDD 4 08/08/21 [History] Isosorbide Dinitrate 30 mg PO BID 08/08/21 [History] Lisinopril/Hydrochlorothiazide [Lisinopril-Hctz 10-12.5 mg Tab] 1 each PO DAILY 08/08/21 [History] Omeprazole 20 mg PO DAILY 08/08/21 [History] Sertraline HCl 50 mg [Zoloft 50 mg Tablet] 100 mg PO DAILY 08/08/21 [History] hydrOXYzine pamoate [Hydroxyzine Pamoate] 50 mg PO DAILY 08/08/21 [History] Hx Tetanus, Diphtheria Vaccination/Date Given: Yes Hx Influenza Vaccination/Date Given: No Hx Pneumococcal Vaccination/Date Given: No Travel Risk - Vaccine Status Have you recieved a 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-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 - Vaccination Dates Date of 2cond Vaccination (if applicable): 11/08/20 - Review of Systems Constitutional: No Symptoms Eyes: No Symptoms Ears, Nose, & Throat: No Symptoms Respiratory: No Symptoms Cardiac: No Symptoms Abdominal/Gastrointestinal: No Symptoms Genitourinary Symptoms: No Symptoms Musculoskeletal: Arthralgias, Back Pain Skin: No Symptoms Neurological: Sensory Changes Psychological: No Symptoms Endocrine: No Symptoms - Past Medical History Pertinent Past Medical History: Yes Neurological History: No Pertinent History Cardiac History: Hypertension Respiratory History: No Pertinent History Endocrine Medical History: No Pertinent History Musculoskeletal History: Degenerative Disk Disease, Osteoarthritis - Past Surgical History Past Surgical History: Yes Gastrointestinal: Cholecystectomy - Social History Smoking Status: Never smoker Exposure to second hand smoke: No Drug Use: none Patient Lives Alone: No - Physical Exam General Appearance: no apparent distress Neck Exam: normal inspection, full range of motion Respiratory Exam: normal breath sounds, lungs clear Cardiovascular Exam: regular rate/rhythm, normal heart sounds Back Exam: normal inspection Extremity Exam: normal inspection, normal range of motion, pelvis stable, other (Bilateral positive Phalen and Tinel tests.) Neurologic Exam: alert, oriented x 3, cooperative, 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 as tested, normal mood/affect, nml cerebellar function, nml station & gait, sensation nml, No motor deficits Skin Exam: normal color SpO2 Interpretation: normal SpO2: 95 O2 Delivery: Room Air Ordered Tests: Medication Summary Discontinued Medications Generic Name Dose Route Start Last Admin Trade Name Freq PRN Reason Stop Dose Admin Triamcinolone Acetonide 60 mg 01/09/22 01:16 Triamcinolone Acetonide 40 Mg/Ml Ml IM 01/09/22 01:17 1XONLY ONE - Progress Progress: pain not gone completely Progress Note: 01/09/22 01:23 Really patient has carpal tunnel bilateral, given a steroid shot, recommended continue with Neurontin and use Vertiflex splint and outpatient follow-up. Patient symptoms and exam is not consistent with acute neuro event and do not think needs any other work-up and is stable for discharge. Counseled pt/family regarding: diagnosis, need for follow-up - Departure Departure Disposition: Home Clinical Impression: Carpal tunnel syndrome, bilateral upper limbs Condition: Stable Critical Care Time: No Referrals: RADHA SAENZ MD [CONSULTING PHYSICIAN] - Follow up/PCP as directed (In 2 to 3 days for reevaluation) Instructions: Paresthesia (DC), Carpal Tunnel Syndrome (DC) Additional Instructions: Use Perflex splint. Continue with pain medications. Follow-up with neurology/pain management for reevaluation and EMG studies for further evaluation of carpal tunnel. Return to ER for worsening of symptoms or if having weakness etc.
[2022-01-09] MEDS ORDERED: Kenalog-40 ONE (01:28)
[2022-01-09 01:42] VITALS: BP 135/90; PULSE 82
== END 2022-01-09 01:47 | disposition home or self-care (01) ==
LOC: ED 01:00
DX: G56.03 Carpal tunnel syndrome, bilateral upper limbs (principal); M79.641 Pain in right hand; M79.642 Pain in left hand; I10 Essential (primary) hypertension; E78.5 Hyperlipidemia, unspecified; Z79.891 Long term (current) use of opiate analgesic; Z79.899 Other long term (current) drug therapy
CPT/HCPCS: 96372; 99282; J3301; L3908

== ENCOUNTER 2022-05-03 10:40 | Emergency (ER) | payer MEDICAID ==
[2022-05-03 11:24] LABS: Group A Strep NOT DETECTED (NEGATIVE)
[2022-05-03 11:35] LABS: INFLUENZA A NEGATIVE (NEGATIVE); INFLUENZA B NEGATIVE (NEGATIVE); RESPIRATORY SYNCTIAL VIRUS NEGATIVE (Negative); SARS-CoV-2 Xpert Express NEGATIVE (NEGATIVE)
[2022-05-03] MEDS ORDERED: Adacel Vial IM ONE ×2 (12:14→12:16)
--- NOTE | 2022-05-03 12:21 | ERPHSYRPT ---
- History of Present Illness Time Seen by Provider: 05/03/22 11:20 Source: patient Exam Limitations: no limitations Patient Subjective Stated Complaint: pt here for sore throat,nausea and feeling like foreign body in throat for 2 weeks now Triage Nursing Assessment: pt alert, walked in, resp easy, skin w/d/p. no drooling, Physician History: Patient is a 61-year-old male presents to our ED for evaluation of a cough sore throat and slight nausea that has been ongoing for approximately 2 weeks. Patient has a slight sore throat and feels as though there may be a foreign body in his throat. Although patient denies ingesting any foreign bodies. No difficulty swallowing. Patient is not a smoker. No weight loss. No shortness of breath. No chest pain. Timing/Duration: week(s) (2 weeks) Severity: mild Modifying Factors: Improves With: nothing Associated Symptoms: denies symptoms Allergies/Adverse Reactions: No Known Drug Allergies Allergy (Verified 05/03/22 10:49) Home Medications: Lisinopril/Hydrochlorothiazide [Lisinopril-Hctz 10-12.5 mg Tab] 1 each PO DAILY 08/08/21 [History] Omeprazole 20 mg PO DAILY 08/08/21 [History] Sertraline HCl 50 mg [Zoloft 50 mg Tablet] 100 mg PO DAILY 08/08/21 [History] Hx Tetanus, Diphtheria Vaccination/Date Given: Yes Hx Influenza Vaccination/Date Given: No Hx Pneumococcal Vaccination/Date Given: No Immunizations Up to Date: Yes Travel Risk - International Travel Have you traveled outside of the country in past 3 weeks: No - Coronavirus Screening Are you exhibiting any of the following symptoms?: No Close contact with a COVID-19 positive Pt in past 14-21 Days: No - Vaccine Status Have you recieved a Covid-19 vaccination: Yes 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: [employer] - Vaccination Dates Date of 2cond Vaccination (if applicable): 11/08/20 - Review of Systems Constitutional: No Symptoms, No Fever, No Chills Eyes: No Symptoms Ears, Nose, & Throat: No Symptoms Respiratory: No Symptoms, No Cough, No Dyspnea Cardiac: No Symptoms, No Chest Pain, No Edema, No Syncope Abdominal/Gastrointestinal: No Symptoms, No Abdominal Pain, No Nausea, No Vomiting, No Diarrhea Genitourinary Symptoms: No Symptoms, No Dysuria Musculoskeletal: No Symptoms, No Back Pain, No Neck Pain Skin: No Symptoms, No Rash Neurological: No Symptoms, No Dizziness, No Focal Weakness, No Sensory Changes Psychological: No Symptoms Endocrine: No Symptoms Hematologic/Lymphatic: No Symptoms Immunological/Allergic: No Symptoms All Other Systems: Reviewed and Negative - Past Medical History Pertinent Past Medical History: Yes Neurological History: No Pertinent History Cardiac History: Hypertension Respiratory History: No Pertinent History Endocrine Medical History: No Pertinent History Musculoskeletal History: Degenerative Disk Disease, Osteoarthritis GI Medical History: GERD History: No Pertinent History Psycho-Social History: Anxiety, Other Male Reproductive Disorders: Prostate Problems Other Medical History: PTSD - Past Surgical History Past Surgical History: Yes Neuro Surgical History: No Pertinent History Cardiac: No Pertinent History Respiratory: No Pertinent History Gastrointestinal: Cholecystectomy Genitourinary: No Pertinent History Musculoskeletal: No Pertinent History Male Surgical History: No Pertinent History - Social History Smoking Status: Never smoker Exposure to second hand smoke: No Drug Use: none Patient Lives Alone: No - Nursing Vital Signs Nursing Vital Signs: Initial Vital Signs Temperature 97.2 F 05/03/22 10:50 Pulse Rate 94 H 05/03/22 10:50 Respiratory Rate 18 05/03/22 10:50 Blood Pressure 118/90 05/03/22 10:50 O2 Sat by Pulse Oximetry 96 05/03/22 10:50 Pain Scale Pain Intensity 0 - Physical Exam General Appearance: no apparent distress, alert Eye Exam: PERRL/EOMI, eyes nml inspection Ears, Nose, Throat Exam: normal ENT inspection, TMs normal, pharynx normal, moist mucous membranes Neck Exam: normal inspection, non-tender, supple, full range of motion Respiratory Exam: normal breath sounds, lungs clear, airway intact, No respiratory distress Cardiovascular Exam: regular rate/rhythm, normal heart sounds, normal peripheral pulses Gastrointestinal/Abdomen Exam: soft, normal bowel sounds, No tenderness, No mass Back Exam: normal inspection, normal range of motion, No CVA tenderness, No vertebral tenderness Extremity Exam: normal inspection, normal range of motion, pelvis stable Neurologic Exam: alert, oriented x 3, cooperative, normal mood/affect, nml cerebellar function, nml station & gait, sensation nml, No motor deficits Skin Exam: normal color, warm, dry, No rash Lymphatic Exam: No adenopathy SpO2 Interpretation: normal SpO2: 97 O2 Delivery: Room Air - Course Nursing assessment & vital signs reviewed: Yes EKG Interpreted by Me: RATE (70), Sinus Rhythm, NORMAL AXIS, NORMAL INTERVALS (Prolonged UT interval, left anterior fascicular block) - Radiology Exams Other X-ray Interpretation: Teleradiologist Report (X-ray soft tissue neck no foreign bodies or masses observed on x-ray) Ordered Tests: Active Orders 24 hr Category Date Time Status EKG-ER Only STAT Care 05/03/22 12:33 Active NECK SOFT TISSUE Stat Exams 05/03/22 12:56 Completed Medication Summary Discontinued Medications Generic Name Dose Route Start Last Admin Trade Name Freq PRN Reason Stop Dose Admin Diphtheria/Tetanus/Acell Pertussis 0.5 ml 05/03/22 12:14 05/03/22 12:17 Tdap --Diph,Pertuss(Acell),Tet Vac/Pf 0.5 Ml Vial IM 05/03/22 12:15 0.5 ml .ONCE ONE Administration Diphtheria/Tetanus/Acell Pertussis Confirm 05/03/22 12:16 Tdap --Diph,Pertuss(Acell),Tet Vac/Pf 0.5 Ml Vial Administered 05/03/22 12:17 Dose 0.5 ml IM .[facility] Lab/Rad Data: Laboratory Results 05/03/22 Range/Units 10:51 Influenza Type A Ag NEGATIVE (NEGATIVE) Influenza Type B Ag NEGATIVE (NEGATIVE) RSV (PCR) NEGATIVE (Negative) SARS-CoV-2 (PCR) NEGATIVE (NEGATIVE) Group A Strep Antibody NOT DETECTED (NEGATIVE) - Progress Progress: improved Progress Note: Patient is 61-year-old male presents to our ED for evaluation of cough. Patient states he coughs with prolonged expiration and states that he occasionally feels as though he is going to pass out but never does. This has been ongoing for approximately 2 weeks. Patient states he coughed so much his throat is sore. No coughing observed in our ED. Patient has a slight soft tissue foreign body sensation although he denies ingesting any foreign bodies. Patient's throat exam essentially nonremarkable. Patient lung exam unremarkable. We are concerned for possible pertussis. However our [facility] swab for pertussis is outdated therefore we cannot test for pertussis here. Patient's tetanus is not up-to-date. Adacel administered.. Viral panel was negative. Rapid strep negative for strep throat. A prescription for Z-Jovan was for the patient's pharmacy. Z-Jovan treats suspected pertussis. Screening EKG was performed. No ischemic or STEMI observed. Patient does not have a primary care doctor. Patient referred to our service doc/no doc for follow-up. No indication for chest x-ray at this time as patient's chest exam is benign. Patient is not a smoker. An EKG was ordered due to patient's complaint of nausea foreign body sensation in throat and cardiovascular risk factors. Although patient has no chest pain. EKG was ordered as a screening tool for possible ACS No ischemic changes observed on EKG. Portions of this note were created with voice recognition technology. There may be grammatical, spelling, punctuation or sound alike errors Patient's complaint is acute. Complexity of presentation is moderate. No significant comorbidities to contribute to patient's current symptomology. Results of testing ordered were used for medical decision making. Patient received a dose of Adacel. A prescription for Z-Jovan was ordered to patient's pharmacy. No consultation. Patient agrees to follow-up with Dr. Reed within 48 hours for reevaluation. Level of EM service provided was moderate. Complexity the problem addressed was moderate. Complexity of data reviewed was moderate. Risk of complication and/or risk of morbidity/mortality of patient management is moderate. No critical care time. Patient served as an independent historian however his at bedside is contributing to the HPI. . Patient was thirsty. Patient requested a soft drink. Soft drink provided by ER doctor. Time spent during discharge was approximately 15 minutes. Discharge diagnoses cough. Patient will be discharged home. X-ray soft tissue neck negative. Portions of this note were created with voice recognition technology. There may be grammatical, spelling, punctuation or sound alike errors Counseled pt/family regarding: lab results, diagnosis, need for follow-up Medical Desision Making - Independent Historian Additional History obtained from: Spouse - Discussion of managment Reviewed:: Test results Agreed on:: Treatment plan - Diagnostic Testing Diagnostic Testing: Diagnostic tests were ordered,analyzed, and reviewed by me and used in my medical decision making for this patient. Radiologic studies (if ordered) were read by me initially then discussed with the radiologist . - Risk of complications The pt has a mod risk of morbidity or mortality based on: Need for prescription drug management - Departure Departure Disposition: Home Clinical Impression: Sore throat, Cough Condition: Stable Critical Care Time: No Referrals: DOCTOR,NO FAMILY [Primary Care Provider] - Follow up/PCP as directed PAULINE REED DO [ACTIVE STAFF] - Follow up/PCP as directed Additional Instructions: Discharge/Care Plan JAMES HAYES was seen on 05/03/22 in the Emergency Room. The patient was counseled regarding Diagnosis,Lab results, Imaging studies, need for follow up and when to return to the Emergency Room. Prescriptions given: Discharge Note I have spoken with the patient and/or caregivers. I have explained the patient's condition, diagnosis and treatment plan based on the information available to me at this time. I have answered the patient's and/or caregiver's questions and addressed any concerns. The patient and/or caregivers have as good understanding of the patient's diagnosis, condition and treatment plan as can be expected at this point. The vital signs have been stable. The patient's condition is stable and appropriate for discharge from the emergency department. The patient will pursue further outpatient evaluation with the primary care physician or other designated or consulting physician as outlined in the discharge instructions. The patient and/or caregivers are agreeable to this plan of care and follow-up instructions have been explained in detail. The patient and/or caregivers have received these instruction. The patient/and or caregivers are aware that any significant change in condition or worsening of symptoms should prompt an immediate return to this or the closest emergency department or call 911.
--- NOTE | 2022-05-03 13:09 | XRAY ---
Indication: Sore throat 2 weeks. Comparison: None AP/lateral soft tissue neck demonstrates widely patent supra and infraglottic airway. Normal epiglottis. Patient edentulous.
[2022-05-03 14:02] VITALS: BP 102/70; PULSE 87; O2SAT 98
== END 2022-05-03 14:04 | disposition home or self-care (01) ==
LOC: ED 10:40
DX: J02.9 Acute pharyngitis, unspecified (principal); R05.9 Cough, unspecified; I10 Essential (primary) hypertension; Z79.899 Other long term (current) drug therapy
CPT/HCPCS: 0241U; 70360; 87651; 90471; 93005; 99283; 90715

== ENCOUNTER 2023-05-29 19:56 | Emergency (ER) | payer MEDICAID | END 2023-05-29 20:14 | disposition left against medical advice (07) | LOC: ED 19:56 | DX: Z53.8 Procedure and treatment not carried out for other reasons (principal) | CPT/HCPCS: 99281 ==